=== PATIENT | female | born 1955 | race Caucasian/White ===

== ENCOUNTER 2017-03-12 15:02 | Observation (INO) | payer OTHER ==
[2017-03-12 15:32] VITALS: BMI 29.1
--- NOTE | 2017-03-12 15:59 | ED PDOC ---
Arrival/HPI - General Time Seen by Provider: 03/12/17 15:21 Historian: Patient - History of Present Illness Narrative History of Present Illness (Text): 03/12/17 15:57 61 year old female whose past medical history includes dyslipidemia and hypertension presents to the emergency department with 1 day duration of right sided chest discomfort radiating to the right upper extremity. No relieving or exacerbating factors. No ripping or tearing sensation to the back. Time/Duration: 24 hours Symptom Onset: Gradual Symptom Course: Unchanged Modifying Factors (Text): None Past Medical History - Provider Review Nursing Documentation Reviewed: Yes Family/Social History - Physician Review Nursing Documentation Reviewed: Yes Family/Social History: Unknown Family HX Allergies/Home Meds Allergies/Adverse Reactions: Allergies Unobtainable Allergy (Unverified 03/12/17 15:42) Review of Systems - Physician Review All systems were reviewed & negative as marked: Yes Physical Exam - Physical Exam Narrative Physical Exam (Text): - Review of Systems Constitutional: Normal. absent: Fatigue, Weight Change, Fevers Eyes: Normal ENT: Normal Respiratory: Normal absent: SOB, Cough, Sputum Cardiovascular: Right sided chest discomfort absent: Palpitations, Syncope Gastrointestinal: Normal absent: Abdominal pain, Diarrhea, Nausea, Vomiting Genitourinary: Normal. absent: Dysuria, Frequency, Hematuria Musculoskeletal: Normal. absent: Arthralgias, Back Pain, Neck Pain Skin: Normal Neurological: Normal absent: Focal Weakness Endocrine: Normal Hemo/Lymphatic: Normal Psychiatric: Normal - Physical exam Patient appears age appropriate, speaking full sentences without difficulty - Systems Exam Head: Present: Atraumatic, Normocephalic Pupils: Present: PERRL Extraocular Muscles: Present: EOMI Conjunctiva: Present: Normal Mouth: Present: Moist Mucous Membranes Neck: Present: Normal Range of Motion. No: MIDLINE TENDERNESS, Paraspinal Tenderness Respiratory/Chest: Present: Clear to Auscultation, Good Air Exchange. No: Respiratory Distress, Accessory Muscle Use, Tachypneic Cardiovascular: Present: Regular Rate and Rhythm, Normal S1, S2, Peripheral Pulses Present. No: Murmurs Abdomen: Present: Normal Bowel Sounds, No: Tenderness, Peritoneal Signs, Rebound, Guarding, Distention Back: Present: Normal Inspection. No: Midline Tenderness, Paraspinal Tenderness Upper Extremity: Present: Normal Inspection. No: Cyanosis, Edema Lower Extremity: Present: Normal Inspection. No: Edema Neurological: Present: GCS=15, Speech Normal, cranial nerves II through XII fully intact with no cerebellar abnormality, neuro-sensory fully intact. No focal neurological deficits. Skin: Present: Warm, Dry, Normal Color. No: Rashes Lymphatic: Present: OX3, NI, NC Psychiatric: Present: Alert, Oriented x 3, Normal Insight, Normal Concentration Vital Signs Reviewed: Yes Vital Signs Temp Pulse Resp BP Pulse Ox 03/12/17 16:13 66 18 143/69 99 03/12/17 15:26 98.2 F 65 18 145/75 99 Temperature: Afebrile Blood Pressure: Normal Pulse: Regular Respiratory Rate: Normal Appearance: Positive for: Well-Appearing, Non-Toxic Pain Distress: Mild Mental Status: Positive for: Alert and Oriented X 3 Medical Decision Making ED Course and Treatment: Impression: 61 year old female whose past medical history includes dyslipidemia and hypertension presents to the emergency department with 1 day duration of right sided chest discomfort radiating to the right upper extremity. Differential Diagnosis included but are not limited to: acs, pna Plan: -- EKG, CXR -- Aspirin, Nitroglycerin -- Reassess and disposition Progress Notes: Had discussion with the patient and family, explaining that the patient will need to be observed due to cardiac risk factors. Patient and family in agreement. EKG shows NSR at [address]-segment elevations or depressions, no T-wave inversions, normal intervals. Interpreted by me. 03/12/17 16:55 Chest xray interpreted by ED physician shows no pneumothorax, no cardiomegaly, no infiltrates 03/12/17 17:[address] Sang Griffith, aware of and agrees with tele/obs pt aware of and agrees with plan encounter translated by pt's relative without difficulty - Lab Interpretations Lab Results: 03/12/17 16:45 03/12/17 16:45 Lab Results 03/12/17 16:45: PT 10.7, INR 0.99, APTT 25.7 03/12/17 16:45: WBC 6.3, RBC 4.46, Hgb 14.0, Hct 40.6, MCV 91.0, MCH 31.4, MCHC 34.5, RDW 12.7, Plt Count 216, MPV 9.6, Gran % 42.4 L, Lymph % (Auto) 50.8 H, Clark % (Auto) 5.5, Eos % (Auto) 0.8 L, Baso % (Auto) 0.5, Gran # 2.69, Lymph # 3.2, Clark # 0.4, Eos # 0.1, Baso # 0.03 03/12/17 16:45: Sodium 140, Potassium 4.2, Chloride 104, Carbon Dioxide 29, Anion Gap 11, BUN 14, Creatinine 0.7, Est GFR ( Amer) > 60, Est GFR (Non- Af Amer) > 60, Random Glucose 122 H, Calcium 9.5, Total Bilirubin 0.8, AST 23, ALT 30, Alkaline Phosphatase 94, Lactate Dehydrogenase 388, Total Creatine Kinase 146, Troponin I < 0.01, Total Protein 7.5, Albumin 4.3, Globulin 3.2, Albumin/Globulin Ratio 1.3 - RAD Interpretation Radiology Orders: 03/12/17 15:43 CHEST PORTABLE [RAD] Stat - EKG Interpretation Interpreted by ED Physician: Yes Type: 12 lead EKG - Medication Orders Current Medication Orders: Discontinued Medications Aspirin (Aspirin Chewable) 324 mg PO STAT STA Stop: 03/12/17 15:43 Last Admin: 03/12/17 16:45 Dose: 324 mg Nitroglycerin (Nitrostat Sl Tab) 0.3 mg SL STAT STA Stop: 03/12/17 15:43 Last Admin: 03/12/17 16:45 Dose: 0.3 mg - Scribe Statement The provider has reviewed the documentation as recorded by the Kristen Mena Provider Scribe Attestation: All medical record entries made by the Kristen were at my direction and personally dictated by me. I have reviewed the chart and agree that the record accurately reflects my personal performance of the history, physical exam, medical decision making, and the department course for this patient. I have also personally directed, reviewed, and agree with the discharge instructions and disposition. Disposition/Present on Arrival - Present on Arrival Any Indicators Present on Arrival: No - Disposition Have Diagnosis and Disposition been Completed?: Yes Diagnosis: Chest pain Disposition: HOSPITALIZED Disposition Time: 17:55 Patient Plan: Observation Condition: FAIR Discharge Instructions (ExitCare): Chest Pain (ED) Referrals: PCP,NO [Primary Care Provider] - Follow up with primary
[2017-03-12 16:55] LABS: ADD MANUAL DIFF? NO
[2017-03-12 17:01] LABS: BASO # 0.03 K/mm3 (0.0-2.0); BASO % 0.5 % (0.0-3.0); EOS # 0.1 (0.0-0.7); EOS % 0.8 % (1.5-5.0); GRAN # 2.69 (1.4-6.5); GRAN % 42.4 % (50.0-68.0); HEMATOCRIT 40.6 % (36.0-48.0); LYMPH # 3.2 (1.2-3.4); LYMPH % 50.8 % (22.0-35.0); MEAN CORPUSCULAR HEMOGLOBIN 31.4 pg (25.0-35.0); MEAN CORPUSCULAR HGB CONC 34.5 g/dl (31.0-37.0); MEAN PLATELET VOLUME 9.6 fl (7.0-11.0); MONO # 0.4 (0.1-0.6); MONO % 5.5 % (1.0-6.0); PLATELET COUNT 216 10^3/uL (120.0-450.0); RED CELL DISTRIBUTION WIDTH 12.7 % (11.5-14.5); WHITE BLOOD COUNT 6.3 10^3/ul (4.5-11.0)
[2017-03-12 17:10] LABS: ALB/GLOB RATIO 1.3 (1.1-1.8); ALKALINE PHOSPHATASE 94 U/L (38-133); ALT/SGPT 30 U/L (7-56); AST/SGOT 23 U/L (15-39); BILIRUBIN,TOTAL 0.8 mg/dL (0.2-1.3); BLOOD UREA NITROGEN 14 mg/dL (7-21); CALCIUM 9.5 mg/dL (8.4-10.5); CARBON DIOXIDE 29 mmol/L (21-33); CHLORIDE 104 mmol/L (98-107); GFR AFRICAN-AMERICAN > 60; GLUCOSE,RANDOM 122 mg/dL (70-110); POTASSIUM 4.2 mmol/L (3.6-5.0); SODIUM 140 mmol/L (132-148); TOTAL PROTEIN 7.5 g/dL (5.8-8.3)
[2017-03-12 17:24] LABS: TROPONIN I < 0.01 ng/mL
[2017-03-12 17:34] LABS: INR 0.99 (0.93-1.08); PARTIAL THROMBOPLASTIN TIME 25.7 Seconds (23.7-30.8)
--- NOTE | 2017-03-12 20:26 | CP.PCM.HP ---
<AmitaAxel - Last Filed: 03/12/17 20:23> History of Present Illness - History of Present Illness History of Present Illness: This patient is a 61yo F from [place] w/ PMHx of DM and HLD, Yi speaking only here since Nov 2016, who is coming to the ED after a 1d hx of R Sided Chest pain , continuous, burning in nature, with associated shortness of breath. She has never had this pain before. She did not do anything to help the pain. Upon arrival to the ED, she was given Aspirin and Nitroglycerin which resolved her pain, and on examination had no pain to complain of. She denies any history of cardiac problems; she denies cardiac history. Had Mammogram and Colonscopy 1yr ago in [place] which were both normal. PMHx: DM, HLD Med: Glucophage, and unknown HLD agent both from [place] FamHx: unremarkable for any disease or cancer Allergies: none Social: Lives with Daughter, retired, denies EtOH and Smoking, denies illicit drugs An EKG was done in the ED which was NSR with no abnormalities. Troponin was negative. The patient will be admitted to telemetry for further monitoring. Present on Admission - Present on Admission Any Indicators Present on Admission: No History of DVT/PE: No History of Uncontrolled Diabetes: No Urinary Catheter: No Decubitus Ulcer Present: No Review of Systems - Review of Systems All systems: reviewed and no additional remarkable complaints except - Constitutional Constitutional: As Per HPI Past Patient History - Past Social History Smoking Status: Never Smoked - CARDIAC Hx Cardiac Disorders: Yes Hx Hypercholesterolemia: Yes - PULMONARY Hx Respiratory Disorders: No - NEUROLOGICAL Hx Neurological Disorder: No - HEENT Hx HEENT Problems: No - RENAL Hx Chronic Kidney Disease: No - ENDOCRINE/METABOLIC Hx Endocrine Disorders: Yes Hx Diabetes Mellitus Type 2: Yes - HEMATOLOGICAL/ONCOLOGICAL Hx Blood Disorders: No - INTEGUMENTARY Hx Dermatological Problems: No - MUSCULOSKELETAL/RHEUMATOLOGICAL Hx Musculoskeletal Disorders: No - GASTROINTESTINAL Hx Gastrointestinal Disorders: No - GENITOURINARY/GYNECOLOGICAL Hx Genitourinary Disorders: No - PSYCHIATRIC Hx Psychophysiologic Disorder: No Hx Substance Use: No - SURGICAL HISTORY Hx Surgeries: No Meds Allergies/Adverse Reactions: Allergies Allergy/AdvReac Type Severity Reaction Status Date / Time Unobtainable Allergy Unverified 03/12/17 15:42 Physical Exam - Constitutional Appears: Well, Non-toxic Additional comments: Patient is slightly tired and slow; patient has been fasting for Ramadon - Head Exam Head Exam: ATRAUMATIC - Eye Exam Eye Exam: EOMI, Normal appearance Pupil Exam: PERRL - ENT Exam ENT Exam: Mucous Membranes Moist - Neck Exam Neck exam: Positive for: Full Rom. Negative for: Lymphadenopathy, Meningismus - Respiratory Exam Respiratory Exam: Clear to Auscultation Bilateral, NORMAL BREATHING PATTERN. absent: Accessory Muscle Use, Chest Wall Tenderness, Decreased Breath Sounds, Prolonged Expiratory Phase, Rales, Rhonchi, Wheezes, Respiratory Distress, Stridor - Cardiovascular Exam Cardiovascular Exam: REGULAR RHYTHM, +S1, +S2 - GI/Abdominal Exam GI & Abdominal Exam: Normal Bowel Sounds, Soft. absent: Tenderness - Rectal Exam Rectal Exam: Deferred - Extremities Exam Extremities exam: Positive for: full ROM, normal capillary refill, normal inspection, pedal pulses present. Negative for: calf tenderness, joint swelling , pedal edema, tenderness - Back Exam Back exam: absent: CVA tenderness (L), CVA tenderness (R) - Neurological Exam Neurological exam: Alert, CN II-XII Intact, Oriented x3 - Psychiatric Exam Psychiatric exam: Normal Affect, Normal Mood - Skin Skin Exam: Dry Results - Vital Signs Recent Vital Signs: Last Vital Signs Temp 98.2 F 03/12/17 15:26 Pulse 64 03/12/17 18:17 Resp 18 03/12/17 18:17 BP 141/65 03/12/17 18:17 Pulse Ox 99 03/12/17 18:17 - Labs Result Diagrams: 03/12/17 16:45 03/12/17 16:45 - EKG Data EKG Interpreted by: ER Physician EKG shows normal: Sinus rhythm Rate: Normal Assessment & Plan - Assessment and Plan (Free Text) Assessment: This patient is a 61yo F admitted for Chest Pain, Atypical Atypical Chest Pain -Initial troponin negative; will re-order q8h. -WELLS 0 1.3% change of PERC 1 only for age; no other symptoms of PE -Telemetry, EKG in morning, initial EKG NSR HLD -Lipitor 20mg HS -Lipid Panel DM -RISS Low -HbA1c Proph -Pepcid 20mg -Low Risk for DVT -Heart Healthy Diet; patient is fasting for Ramadon Case Discussed and seen with Dr. Naseem Conde PGY1 Night Float [phone] Decision To Admit - Pt Status Changed To: Hospital Disposition Of: Observation - . Bed Request Type: Remote Telemetry Admitting Physician: Kev Gusman <Kev Gusman - Last Filed: 03/26/17 19:26> Results - Vital Signs Recent Vital Signs: Last Vital Signs Temp 98.1 F 03/13/17 12:00 Pulse 56 L 03/13/17 14:00 Resp 20 03/13/17 12:00 BP 143/83 03/13/17 12:00 Pulse Ox 98 03/13/17 06:00 - Labs Result Diagrams: 03/13/17 06:45 03/13/17 06:45 Attending/Attestation - Attestation I have personally seen and examined this patient.: Yes I have fully participated in the care of the patient.: Yes I have reviewed all pertinent clinical information: Yes
[2017-03-13 02:48] VITALS: O2SAT 98
[2017-03-13 07:13] LABS: HEMATOCRIT 42.2 % (36.0-48.0); MEAN CELL VOLUME 90.9 fL (80.0-105.0); MEAN CORPUSCULAR HGB CONC 34.1 g/dl (31.0-37.0); MEAN PLATELET VOLUME 9.8 fl (7.0-11.0); RED CELL DISTRIBUTION WIDTH 12.8 % (11.5-14.5); WHITE BLOOD COUNT 7.2 10^3/ul (4.5-11.0)
[2017-03-13 07:30] LABS: BLOOD UREA NITROGEN 11 mg/dL (7-21); CALCIUM 9.7 mg/dL (8.4-10.5); CARBON DIOXIDE 29 mmol/L (21-33); CHLORIDE 103 mmol/L (98-107); CHOLESTEROL 202 mg/dL (130-200); GFR AFRICAN-AMERICAN > 60; GLUCOSE,RANDOM 144 mg/dL (70-110); POTASSIUM 4.2 mmol/L (3.6-5.0); SODIUM 140 mmol/L (132-148)
[2017-03-13 07:47] LABS: TROPONIN I < 0.01 ng/mL
[2017-03-13 08:11] LABS: FREE T4 0.91 ng/dL (0.78-2.19)
[2017-03-13 08:25] LABS: THYROID STIMULATING HORMONE 2.33 mIU/mL (0.46-4.68)
[2017-03-13] MEDS: Insulin Lispro (humaLOG) LOW Coverage SC SCH ×2 (08:26→12:00)
--- NOTE | 2017-03-13 09:04 | RAD ---
HISTORY: cough COMPARISON: No prior. FINDINGS: LUNGS: No active pulmonary disease. PLEURA: No significant pleural effusion identified, no pneumothorax apparent. CARDIOVASCULAR: Normal. OSSEOUS STRUCTURES: No significant abnormalities. VISUALIZED UPPER ABDOMEN: Normal. OTHER FINDINGS: None. IMPRESSION: No active disease.
--- NOTE | 2017-03-13 09:29 | CP.PCM.PN ---
<Neal Roca - Last Filed: 03/13/17 09:24> Subjective - Date & Time of Evaluation Date of Evaluation: 03/13/17 Time of Evaluation: 09:24 - Subjective Subjective: Patient seen at bedside. No acute events overnight. Patient continues to complain of sharp right lateral chest wall discomfort. Patient also notes intermittent shortness of breath, worse with deep breaths. Patient has no prior hx of cardiac disease. Denies lower extremity pain, swelling, nausea, vomiting or gastric reflux. Objective - Vital Signs/Intake and Output Vital Signs (last 24 hours): Temp Pulse Resp BP Pulse Ox 97.7 F 63 19 122/60 98 03/13/17 06:00 03/13/17 06:00 03/13/17 06:00 03/13/17 06:00 03/13/17 06:00 Intake and Output: 03/13/17 03/13/17 06:59 18:59 Intake Total 240 Output Total 0 Balance 240 - Medications Medications: Current Medications Acetaminophen (Tylenol 325mg Tab) 650 mg PO Q6H PRN PRN Reason: Fever >100.4 F Aspirin (Ecotrin) 81 mg PO DAILY RAMBO Atorvastatin Calcium (Lipitor) 20 mg PO HS RAMBO Last Admin: 03/12/17 22:20 Dose: 20 mg Famotidine (Pepcid) 20 mg PO HS RAMBO Last Admin: 03/12/17 22:19 Dose: 20 mg Insulin Human Lispro (Humalog Low) 0 units SC ACHS RAMBO PRN Reason: Protocol Last Admin: 03/13/17 08:26 Dose: Not Given - Labs Labs: 03/13/17 06:45 03/13/17 06:45 PT 10.7 Seconds (9.9-11.8) 03/12/17 16:45 INR 0.99 (0.93-1.08) 03/12/17 16:45 APTT 25.7 Seconds (23.7-30.8) 03/12/17 16:45 - Constitutional Appears: Non-toxic, No Acute Distress - Head Exam Head Exam: ATRAUMATIC, NORMOCEPHALIC - Eye Exam Eye Exam: EOMI, PERRL - ENT Exam ENT Exam: Mucous Membranes Moist - Neck Exam Neck Exam: Full ROM, Normal Inspection - Respiratory Exam Respiratory Exam: Clear to Ausculation Bilateral. absent: Rales, Rhonchi, Wheezes - Cardiovascular Exam Cardiovascular Exam: REGULAR RHYTHM, +S1, +S2 - GI/Abdominal Exam GI & Abdominal Exam: Soft, Normal Bowel Sounds. absent: Tenderness - Extremities Exam Extremities Exam: Full ROM. absent: Calf Tenderness, Pedal Edema - Neurological Exam Neurological Exam: Alert, Awake, Oriented x3 - Psychiatric Exam Psychiatric exam: Normal Affect, Normal Mood - Skin Skin Exam: Normal Color, Warm Assessment and Plan - Assessment and Plan (Free Text) Assessment: This patient is a 61yo F with hx HLD, DM presenting with atypical chest pain. Atypical Chest Pain - trop negative x3. no acute ekg changes -lipitor 20mg PO HS -aspirin 81mg daily -will add beta cade if HR will allow -cardiology consulted HLD -Lipitor 20mg HS -Lipid Panel DM -RISS Low -HbA1c pending Proph -Pepcid 20mg -Low Risk for DVT <Rochelle Griffith - Last Filed: 04/09/17 19:04> Objective - Vital Signs/Intake and Output Vital Signs (last 24 hours): Temp Pulse Resp BP Pulse Ox 98.1 F 56 L 20 143/83 98 03/13/17 12:00 03/13/17 14:00 03/13/17 12:00 03/13/17 12:00 03/13/17 06:00 - Labs Labs: 03/13/17 06:45 03/13/17 06:45 PT 10.7 Seconds (9.9-11.8) 03/12/17 16:45 INR 0.99 (0.93-1.08) 03/12/17 16:45 APTT 25.7 Seconds (23.7-30.8) 03/12/17 16:45 Attending/Attestation - Attestation I have personally seen and examined this patient.: Yes I have fully participated in the care of the patient.: Yes I have reviewed all pertinent clinical information, including history, physical exam and plan: Yes
--- NOTE | 2017-03-13 09:42 | CARD ---
APPROVED REPORT EKG Measurement Heart [id number] <Conclusion> RSR NSSTW changes
--- NOTE | 2017-03-13 10:10 | CARD ---
APPROVED REPORT EKG Measurement Heart [id number] <Conclusion> Sinus bradycardia Improved repolarization c/w ECG 03/12/17
[2017-03-13 12:14] VITALS: BP 143/83; RESP 20; TEMP 98.1
--- NOTE | 2017-03-13 12:39 | CON ---
DATE: 03/13/2017 REASON FOR CONSULTATION: Chest pain, cardiac evaluation. BRIEF CLINICAL HISTORY: A 61-year-old [place] female with past medical history of diabetes, hyperte nsion, Thai-speaking complaining of right pain in the lower quadrant. The patient admitted for rul e out CAD. PAST MEDICAL HISTORY: Significant for diabetes, hypertension. SOCIAL HISTORY: Denies any history of alcohol abuse. CURRENT MEDICATIONS: The patient is on Glucophage and unknown medication from [place] for high cholest tonia. ALLERGIES: No known drug allergy. FAMILY HISTORY: Unremarkable. No history of coronary artery disease or cancer. REVIEW OF SYSTEMS: As per HPI. CURRENT MEDICATION AT HOME: As mentioned, the patient was taking anticholesterol medication and Gluc ophage. REVIEW OF SYSTEMS: As per HPI. PHYSICAL EXAMINATION: VITAL SIGNS: Temperature afebrile, heart rate 83, blood pressure 12___/60. HEENT: PERRLA. Extraocular muscles intact. NECK: Supple. No carotid bruits. No thyromegaly. CHEST: Clear to auscultation. HEART: S1, S2 regular. ABDOMEN: Soft. EXTREMITIES: Clubbing and cyanosis negative. LABORATORY DATA: Blood workup as follows: WBC 7.____, hemoglobin 14.4, hematocrit 42.2, platelet co unt 211. Chemistry shows sodium 140, potassium 4.2, chloride 103, carbon dioxide 20, anion gap of 12 , BUN 11, creatinine 0.7. Triglycerides 214, cholesterol 202, LDL 102, HDL 52. TSH 0.9. Troponin 0 .01. EKG shows normal sinus, no acute ST-T changes noted. IMPRESSION: Chest pain, atypical. No evidence of acute myocardial infarction. No evidence of acute coronary syndrome. EKG essentially normal, sinus mohan at age of 53. Given the multiple risk facto rs for coronary artery disease, including diabetes, hypertension, hyperlipidemia, suggest echo and a stress test as outpatient. Discussed with the patient. Paper was given to cardiology department to schedule a stress test regular and echo as outpatient. We will discuss with Dr. Khan. Velasquez to disch arge home and follow up stress test as outpatient. Thank you, Dr. Griffith, for providing the opportunity in taking care of the patient. We will follow wit h you. We will repeat another third set of troponins. If third set of troponins is negative, we will discha rge home. Followup stress test as outpatient. Agnieszka Gomez MD cc:Rochelle Griffith MD 305 TT: 03/13/2017 12:38:50 Confirmation # [id number] Dictation # [id number]
[2017-03-13 13:05] LABS: TROPONIN I < 0.01 ng/mL
[2017-03-13 14:50] VITALS: PULSE 56
--- NOTE | 2017-03-13 16:20 | CP.PCM.DIS ---
<ChanelleNeal cabrera - Last Filed: 03/13/17 16:13> Provider - Provider Date of Admission: 03/12/17 17:55 Attending physician: Rochelle Griffith MD Primary care physician: NO PRIMARY CARE PROVIDER Consults: Dr. Leonardo - Cardiology Time Spent in preparation of Discharge (in minutes): 35 Diagnosis - Discharge Diagnosis (1) Chest pain Status: Acute Hospital Course - Lab Results Lab Results: Most Recent Lab Values WBC 7.2 10^3/ul (4.5-11.0) 03/13/17 06:45 RBC 4.64 10^6/uL (3.5-6.1) 03/13/17 06:45 Hgb 14.4 gm/dL (12.0-16.0) 03/13/17 06:45 Hct 42.2 % (36.0-48.0) 03/13/17 06:45 MCV 90.9 fL (80.0-105.0) 03/13/17 06:45 MCH 31.0 pg (25.0-35.0) 03/13/17 06:45 MCHC 34.1 g/dl (31.0-37.0) 03/13/17 06:45 RDW 12.8 % (11.5-14.5) 03/13/17 06:45 Plt Count 211 10^3/uL (120.0-450.0) 03/13/17 06:45 MPV 9.8 fl (7.0-11.0) 03/13/17 06:45 Gran % 42.4 % (50.0-68.0) L 03/12/17 16:45 Lymph % (Auto) 50.8 % (22.0-35.0) H 03/12/17 16:45 Meagher % (Auto) 5.5 % (1.0-6.0) 03/12/17 16:45 Eos % (Auto) 0.8 % (1.5-5.0) L 03/12/17 16:45 Baso % (Auto) 0.5 % (0.0-3.0) 03/12/17 16:45 Gran # 2.69 (1.4-6.5) 03/12/17 16:45 Lymph # 3.2 (1.2-3.4) 03/12/17 16:45 Meagher # 0.4 (0.1-0.6) 03/12/17 16:45 Eos # 0.1 (0.0-0.7) 03/12/17 16:45 Baso # 0.03 K/mm3 (0.0-2.0) 03/12/17 16:45 PT 10.7 Seconds (9.9-11.8) 03/12/17 16:45 INR 0.99 (0.93-1.08) 03/12/17 16:45 APTT 25.7 Seconds (23.7-30.8) 03/12/17 16:45 Sodium 140 mmol/L (132-148) 03/13/17 06:45 Potassium 4.2 mmol/L (3.6-5.0) 03/13/17 06:45 Chloride 103 mmol/L (98-107) 03/13/17 06:45 Carbon Dioxide 29 mmol/L (21-33) 03/13/17 06:45 Anion Gap 12 (10-20) 03/13/17 06:45 BUN 11 mg/dL (7-21) 03/13/17 06:45 Creatinine 0.7 mg/dL (0.5-1.4) 03/13/17 06:45 Est GFR ( Amer) > 60 03/13/17 06:45 Est GFR (Non-Af Amer) > 60 03/13/17 06:45 POC Glucose (mg/dL) 147 mg/dL (65-110) H 03/13/17 11:33 Random Glucose 144 mg/dL (70-110) H 03/13/17 06:45 Hemoglobin A1c 7.2 % (4.2-6.5) H 03/13/17 06:45 Calcium 9.7 mg/dL (8.4-10.5) 03/13/17 06:45 Total Bilirubin 0.8 mg/dL (0.2-1.3) 03/12/17 16:45 AST 23 U/L (15-39) 03/12/17 16:45 ALT 30 U/L (7-56) 03/12/17 16:45 Alkaline Phosphatase 94 U/L (38-133) 03/12/17 16:45 Lactate Dehydrogenase 360 U/L (333-699) 03/13/17 12:20 Total Creatine Kinase 107 U/L (35-230) 03/13/17 12:20 Troponin I < 0.01 ng/mL 03/13/17 12:20 Total Protein 7.5 g/dL (5.8-8.3) 03/12/17 16:45 Albumin 4.3 g/dL (3.0-4.8) 03/12/17 16:45 Globulin 3.2 gm/dL 03/12/17 16:45 Albumin/Globulin Ratio 1.3 (1.1-1.8) 03/12/17 16:45 Triglycerides 214 mg/dL (35-160) H 03/13/17 06:45 Cholesterol 202 mg/dL (130-200) H 03/13/17 06:45 LDL Cholesterol Direct 102 mg/dL (0-129) 03/13/17 06:45 HDL Cholesterol 52 mg/dL (29-60) 03/13/17 06:45 Free T4 0.91 ng/dL (0.78-2.19) 03/13/17 06:45 TSH 3rd Generation 2.33 mIU/mL (0.46-4.68) 03/13/17 06:45 Hepatitis A IgM Ab Negative (NEGATIVE) 03/13/17 06:45 Hep Bs Antigen Negative (NEGATIVE) 03/13/17 06:45 Hep B Core IgM Ab Negative (NEGATIVE) 03/13/17 06:45 Hepatitis C Antibody Negative (NEGATIVE) 03/13/17 06:45 - Hospital Course Hospital Course: This patient is a 61yo F w/ PMHx of DM and HLD who presented after a 1d hx of R Sided Chest pain, continuous, burning in nature, with associated shortness of breath. She has never had this pain before. She did not do anything to help the pain. Upon arrival to the ED, she was given Aspirin and Nitroglycerin which resolved her pain. The patient was admitted to trend cardiac enzymes and r/o ACS. EKG revealed no acute changes significant for ischemia or myocardial damage. Troponins were negative x3. On further evaluation, patient's pain was found to be right sided and sharp in nature. Her discomfort is worse with inspiration and likely musculoskeletal in nature. Cardiology was consulted who advised the patient be discharged to / for outpatient cardiac stress testing. The patient was discharged with these instructions as well as with a rx for Naprosyn for musculoskeletal chest pain. She is advised to return of she continues to experience chest pain or if her sx worsen. Discharge Exam - Head Exam Head Exam: ATRAUMATIC, NORMOCEPHALIC Discharge Plan - Discharge Medications Prescriptions: Naproxen 500 mg PO Q6H #14 tab - Follow Up Plan Condition: GOOD Disposition: HOME/ ROUTINE Instructions: Cardiac Stress Test (GEN), Chest Pain (DC), Chest Pain (GEN), Heart Healthy Diet (DC) Additional Instructions: You will be scheduled for a cardiac stress test with Dr. Gomez to further evaluate your chest discomfort. Please continue taking your medications as you were prior to coming to the hospital. If your symptoms worsen or change please return to the ER. Referrals: Agnieszka Gomez MD [Staff Provider] - PCP,ADELAIDA [Primary Care Provider] - <Rochelle Griffith - Last Filed: 03/13/17 21:38> Provider - Provider Date of Admission: 03/12/17 17:55 Attending physician: Rochelle Griffith MD Primary care physician: ADELAIDA PRIMARY CARE PROVIDER Hospital Course - Lab Results Lab Results: Most Recent Lab Values WBC 7.2 10^3/ul (4.5-11.0) 03/13/17 06:45 RBC 4.64 10^6/uL (3.5-6.1) 03/13/17 06:45 Hgb 14.4 gm/dL (12.0-16.0) 03/13/17 06:45 Hct 42.2 % (36.0-48.0) 03/13/17 06:45 MCV 90.9 fL (80.0-105.0) 03/13/17 06:45 MCH 31.0 pg (25.0-35.0) 03/13/17 06:45 MCHC 34.1 g/dl (31.0-37.0) 03/13/17 06:45 RDW 12.8 % (11.5-14.5) 03/13/17 06:45 Plt Count 211 10^3/uL (120.0-450.0) 03/13/17 06:45 MPV 9.8 fl (7.0-11.0) 03/13/17 06:45 Gran % 42.4 % (50.0-68.0) L 03/12/17 16:45 Lymph % (Auto) 50.8 % (22.0-35.0) H 03/12/17 16:45 Meagher % (Auto) 5.5 % (1.0-6.0) 03/12/17 16:45 Eos % (Auto) 0.8 % (1.5-5.0) L 03/12/17 16:45 Baso % (Auto) 0.5 % (0.0-3.0) 03/12/17 16:45 Gran # 2.69 (1.4-6.5) 03/12/17 16:45 Lymph # 3.2 (1.2-3.4) 03/12/17 16:45 Meagher # 0.4 (0.1-0.6) 03/12/17 16:45 Eos # 0.1 (0.0-0.7) 03/12/17 16:45 Baso # 0.03 K/mm3 (0.0-2.0) 03/12/17 16:45 PT 10.7 Seconds (9.9-11.8) 03/12/17 16:45 INR 0.99 (0.93-1.08) 03/12/17 16:45 APTT 25.7 Seconds (23.7-30.8) 03/12/17 16:45 Sodium 140 mmol/L (132-148) 03/13/17 06:45 Potassium 4.2 mmol/L (3.6-5.0) 03/13/17 06:45 Chloride 103 mmol/L (98-107) 03/13/17 06:45 Carbon Dioxide 29 mmol/L (21-33) 03/13/17 06:45 Anion Gap 12 (10-20) 03/13/17 06:45 BUN 11 mg/dL (7-21) 03/13/17 06:45 Creatinine 0.7 mg/dL (0.5-1.4) 03/13/17 06:45 Est GFR ( Amer) > 60 03/13/17 06:45 Est GFR (Non-Af Amer) > 60 03/13/17 06:45 POC Glucose (mg/dL) 147 mg/dL (65-110) H 03/13/17 11:33 Random Glucose 144 mg/dL (70-110) H 03/13/17 06:45 Hemoglobin A1c 7.2 % (4.2-6.5) H 03/13/17 06:45 Calcium 9.7 mg/dL (8.4-10.5) 03/13/17 06:45 Total Bilirubin 0.8 mg/dL (0.2-1.3) 03/12/17 16:45 AST 23 U/L (15-39) 03/12/17 16:45 ALT 30 U/L (7-56) 03/12/17 16:45 Alkaline Phosphatase 94 U/L (38-133) 03/12/17 16:45 Lactate Dehydrogenase 360 U/L (333-699) 03/13/17 12:20 Total Creatine Kinase 107 U/L (35-230) 03/13/17 12:20 Troponin I < 0.01 ng/mL 03/13/17 12:20 Total Protein 7.5 g/dL (5.8-8.3) 03/12/17 16:45 Albumin 4.3 g/dL (3.0-4.8) 03/12/17 16:45 Globulin 3.2 gm/dL 03/12/17 16:45 Albumin/Globulin Ratio 1.3 (1.1-1.8) 03/12/17 16:45 Triglycerides 214 mg/dL (35-160) H 03/13/17 06:45 Cholesterol 202 mg/dL (130-200) H 03/13/17 06:45 LDL Cholesterol Direct 102 mg/dL (0-129) 03/13/17 06:45 HDL Cholesterol 52 mg/dL (29-60) 03/13/17 06:45 Free T4 0.91 ng/dL (0.78-2.19) 03/13/17 06:45 TSH 3rd Generation 2.33 mIU/mL (0.46-4.68) 03/13/17 06:45 Hepatitis A IgM Ab Negative (NEGATIVE) 03/13/17 06:45 Hep Bs Antigen Negative (NEGATIVE) 03/13/17 06:45 Hep B Core IgM Ab Negative (NEGATIVE) 03/13/17 06:45 Hepatitis C Antibody Negative (NEGATIVE) 03/13/17 06:45 Attending/Attestation - Attestation I have personally seen and examined this patient.: Yes I have fully participated in the care of the patient.: Yes I have reviewed all pertinent clinical information, including history, physical exam and plan: Yes Notes (Text): I have seen and examined patient at bedside. Agree with the above note with the followig additions/ exceptions: Briefly this is 61 year old female with history of DM-2M dyslipidemia who presented with atypical chest pain. Cardio consult appreciated. Advised for outpatient stress test. Upon discharge patient will follow up in [facility] clinic. Dr Rochelle Griffith
== END 2017-03-13 16:52 | disposition home or self-care (01) ==
LOC: ED 15:02 → ERH 17:55 → 2RSO 22:21
PROVIDERS: ADMIT Hospitalist; ATTEND Hospitalist
DX: R07.89 Other chest pain (principal); I10 Essential (primary) hypertension; E11.9 Type 2 diabetes mellitus without complications; E78.5 Hyperlipidemia, unspecified; R06.02 Shortness of breath
CPT/HCPCS: 36415; 71010; 80048; 80053; 80061; 80074; 82550; 82948; 83036; 83615; 84439; 84443; 84484; 85025; 85027; 85610; 85730; 93005; 99285; G0378